=== PATIENT | female | born 1980 | race Caucasian/White ===

== ENCOUNTER → 2017-02-18 | Outpatient (CLI) | payer OTHER ==
[~2017-02-18] MED LIST: 'PARAFON FORTE500 M1 PO; ASPIRIN ADULT L81 M2 PO; BACTRIM DS 8001 TA1 PO; CLINDAMYCIN HC300 MG PO; CLINDAMYCIN150 MG PO; EFFEXOR50 MG PO; ESTRAC1; ESTRACE2 MG PO; FLEXERIL5 MG PO; HYDROCODONE BIT1 T11 PO; K-TAB20 MEQ PO; KLONOPIN0.5 MG; KLONOPIN0.5 MG PO; LOPRESSOR25 MG PO; MOTRIN800 MG PO; NATURE'S BLEND F1 MG PO; PREDNISONE10 MG PO; PRILOSEC20 M1 PO; TRAMADOL HCL50 MG PO; TRAMADOL50 MG PO; VIBRAMYCIN100 MG PO; VICODIN 500 MG-1 TAB PO; VICODIN ES 7501 TAB PO; ZOCOR20 MG PO; ZYRTEC10 M3 PO
== END | disposition home or self-care (01) ==
LOC: RAD 07:52
DX: M54.40 Lumbago with sciatica, unspecified side (principal); R20.0 Anesthesia of skin

== ENCOUNTER → 2018-06-29 | Outpatient (CLI) | payer OTHER | END | disposition home or self-care (01) | LOC: MAMMO 06-10 09:30 → US 06-10 10:00 → MAMMO 12:39 | DX: N63.20 Unspecified lump in the left breast, unspecified quadrant (principal); N63.10 Unspecified lump in the right breast, unspecified quadrant ==

== ENCOUNTER 2020-03-12 10:52 | Emergency (ER) | payer OTHER ==
[~2020-03-12] VITALS: Ht 149.8 cm; Wt 54.4 kg
[2020-03-12 10:58] VITALS: BP 117/55
[2020-03-12] MEDS ORDERED: Motrin,Rufen800 MG PO (13:24)
[2020-03-12] MEDS ORDERED: NORCO 5-325 TA1 EACH PO ×2 (13:24→13:31)
== END 2020-03-12 13:29 | disposition home or self-care (01) ==
LOC: ED 10:52
DX: S20.212A Contusion of left front wall of thorax, initial encounter (principal); S20.211A Contusion of right front wall of thorax, initial encounter; Z88.0 Allergy status to penicillin; Z88.2 Allergy status to sulfonamides; Z88.8 Allergy status to other drugs, medicaments and biological substances; Z79.899 Other long term (current) drug therapy; Z79.82 Long term (current) use of aspirin; Z90.710 Acquired absence of both cervix and uterus; X50.1XXA Overexertion from prolonged static or awkward postures, initial encounter; Y93.89 Activity, other specified; Y92.89 Other specified places as the place of occurrence of the external cause; Y99.8 Other external cause status

== ENCOUNTER 2020-05-29 16:05 | Emergency (ER) | payer OTHER ==
[~2020-05-29] VITALS: Ht 152.4 cm; Wt 56.7 kg
[~2020-05-29 16:05] MED LIST changes: +Motrin,Rufen800 MG PO; +NORCO 5-325 TA1 EACH PO
[2020-05-29 16:18] VITALS: BP 123/72
[2020-05-29 16:51] LABS: BILIRUBIN NEGATIVE (NEGATIVE); BLOOD NEGATIVE (NEGATIVE); CLARITY SL CLOUDY (CLEAR); COLOR YELLOW (YELLOW); GLUCOSE NEGATIVE (NEGATIVE); KETONE NEGATIVE (NEGATIVE); LEUKO ESTERASE NEGATIVE (NEGATIVE); NITRITE NEGATIVE (NEGATIVE); PH 6.5 (5.0-9.0); SPECIFIC GRAVITY 1.005 (1.005-1.030); UROBILINOGEN 0.2 E.U./dl (0.2-1.0)
[2020-05-29 16:53] LABS: BACTERIA 1+
[2020-05-29 17:11] LABS: BASO # 0.1 10*3/uL (0.0-0.1); BASO % 0.4 % (0.0-1.0); EOS # 0.3 10*3/uL (0.0-0.4); EOS % 2.2 % (1.0-4.0); HEMATOCRIT 42.8 % (37.0-47.0); LYMPH % 22.8 % (27.0-41.0); MEAN CORPUSCULAR HGB 30.8 pg (27.0-31.0); MEAN CORPUSCULAR HGB CONC 33.4 g/dl (33.0-37.0); MEAN PLATELET VOLUME 9.5 fl (9.6-12.3); MONO # 0.9 10*3/uL (0.1-1.0); MONO % 6.8 % (3.0-9.0); NEUT % 67.5 % (47.0-73.0); PLATELET COUNT AUTOMATED 330 10*3/uL (130-400); RED BLOOD COUNT 4.65 10*6/uL (4.10-5.10); RED CELL DISTRI WIDTH 13.8 % (0-14.5); WHITE BLOOD COUNT 13.3 10*3/uL (4.8-10.8)
[2020-05-29 17:26] LABS: ALBUMIN 3.4 gm/dl (3.1-4.5); ALKALINE PHOSPHATASE 103 U/L (45-117); BUN 10 mg/dl (7-24); CHLORIDE 107 mmol/L (98-107); CREATININE 0.75 mg/dL (0.55-1.02); LIPASE 250 U/L (73-393); POTASSIUM 3.5 mmol/L (3.5-5.1); SGOT/AST 13 IU/L (3-35); SGPT/ALT 28 U/L (12-78); SODIUM 139 mmol/L (136-145); TOTAL PROTEIN 6.7 gm/dL (6.4-8.2)
[2020-05-29] MEDS ORDERED: ROBAXIN-750750 MG PO (18:44)
== END 2020-05-29 18:48 | disposition home or self-care (01) ==
LOC: ED 16:05
PROVIDERS: Emergency Medicine; Nurse Practitioner Family
DX: M25.552 Pain in left hip (principal); R10.9 Unspecified abdominal pain; R39.11 Hesitancy of micturition; F17.200 Nicotine dependence, unspecified, uncomplicated; Z88.0 Allergy status to penicillin; Z88.2 Allergy status to sulfonamides; Z88.6 Allergy status to analgesic agent; Z79.899 Other long term (current) drug therapy

== ENCOUNTER → 2020-07-25 | Outpatient (CLI) | payer OTHER ==
[~2020-07-25] MED LIST changes: +ROBAXIN-750750 MG PO
== END | disposition home or self-care (01) ==
LOC: COVID19 01:00
PROVIDERS: ATTEND Family Medicine
DX: Z20.828 Contact with and (suspected) exposure to other viral communicable diseases (principal)

== ENCOUNTER → 2021-07-26 | Outpatient (CLI) | payer OTHER ==
[2021-07-26 09:18] LABS: HEMATOCRIT 38.7 % (37.0-47.0); MEAN CELL VOLUME 91.1 fl (81.0-99.0); MEAN CORPUSCULAR HGB 30.6 pg (27.0-31.0); MEAN CORPUSCULAR HGB CONC 33.6 g/dl (33.0-37.0); MEAN PLATELET VOLUME 9.4 fl (9.6-12.3); RED BLOOD COUNT 4.25 10*6/uL (4.10-5.10); RED CELL DISTRI WIDTH 13.2 % (0-14.5); WHITE BLOOD COUNT 8.3 10*3/uL (4.8-10.8)
[2021-07-26 09:47] LABS: ALBUMIN 2.9 gm/dl (3.1-4.5); ALKALINE PHOSPHATASE 128 U/L (45-117); BUN 7 mg/dl (7-24); CHLORIDE 107 mmol/L (98-107); CHOLESTEROL 211 mg/dL (<200); CREATININE 0.74 mg/dL (0.55-1.02); LDL CHOLESTEROL 109 mg/dL (9-159); POTASSIUM 3.7 mmol/L (3.5-5.1); SGOT/AST 20 IU/L (3-35); SGPT/ALT 28 U/L (12-78); SODIUM 140 mmol/L (136-145); TRIGLYCERIDES 143 mg/dl (<150)
== END | disposition home or self-care (01) ==
LOC: LAB 08:56
PROVIDERS: ATTEND Family Medicine
DX: E55.9 Vitamin D deficiency, unspecified (principal); E78.00 Pure hypercholesterolemia, unspecified; E74.00 Glycogen storage disease, unspecified; F41.1 Generalized anxiety disorder; G62.9 Polyneuropathy, unspecified

== ENCOUNTER → 2021-09-04 | Outpatient (CLI) | payer OTHER | END | disposition home or self-care (01) | LOC: MAMMO 08-07 14:00 | PROVIDERS: ATTEND Family Medicine | DX: Z12.31 Encounter for screening mammogram for malignant neoplasm of breast (principal) ==

== ENCOUNTER → 2023-05-01 | Outpatient (CLI) | payer OTHER ==
[2023-05-01 10:51] LABS: HEMATOCRIT 41.2 % (37.0-47.0); MEAN CELL VOLUME 90.5 fl (81.0-99.0); MEAN CORPUSCULAR HGB 30.1 pg (27.0-31.0); MEAN CORPUSCULAR HGB CONC 33.3 g/dl (33.0-37.0); MEAN PLATELET VOLUME 9.8 fl (9.6-12.3); RED BLOOD COUNT 4.55 10*6/uL (4.10-5.10); RED CELL DISTRI WIDTH 13.7 % (0-14.5); WHITE BLOOD COUNT 8.7 10*3/uL (4.8-10.8)
[2023-05-01 11:18] LABS: ALKALINE PHOSPHATASE 152 U/L (46-116); BUN 7 mg/dl (9-23); CHLORIDE 107 mmol/L (98-107); CHOLESTEROL 237 mg/dL (<200); LDL CHOLESTEROL 145 mg/dL (9-159); POTASSIUM 3.9 mmol/L (3.4-5.1); SGPT/ALT 19 U/L (10-49); TOTAL PROTEIN 6.4 gm/dL (6.0-8.0); TRIGLYCERIDES 155 mg/dl (<150)
== END | disposition home or self-care (01) ==
LOC: LAB 09:58
PROVIDERS: ATTEND Family Medicine
DX: Z00.00 Encounter for general adult medical examination without abnormal findings (principal); E74.00 Glycogen storage disease, unspecified; F41.1 Generalized anxiety disorder; K21.9 Gastro-esophageal reflux disease without esophagitis; G62.9 Polyneuropathy, unspecified

== ENCOUNTER → 2023-06-09 | Outpatient (CLI) | payer OTHER | END | disposition home or self-care (01) | LOC: US 05-20 00:34 | PROVIDERS: ATTEND Family Medicine | DX: Z12.31 Encounter for screening mammogram for malignant neoplasm of breast (principal); E27.8 Other specified disorders of adrenal gland ==

== ENCOUNTER → 2024-01-29 | Outpatient (CLI) | payer OTHER ==
[2024-01-29 08:58] LABS: HEMATOCRIT 45.8 % (37.0-47.0); MEAN CELL VOLUME 91.2 fl (81.0-99.0); MEAN CORPUSCULAR HGB 29.5 pg (27.0-31.0); MEAN CORPUSCULAR HGB CONC 32.3 g/dl (33.0-37.0); MEAN PLATELET VOLUME 9.3 fl (9.6-12.3); RED BLOOD COUNT 5.02 10*6/uL (4.10-5.10); RED CELL DISTRI WIDTH 13.3 % (0-14.5); WHITE BLOOD COUNT 9.7 10*3/uL (4.8-10.8)
[2024-01-29 09:28] LABS: ALKALINE PHOSPHATASE 184 U/L (46-116); BUN 7 mg/dl (9-23); CHLORIDE 106 mmol/L (98-107); CHOLESTEROL 251 mg/dL (<200); FREE T4 1.34 ng/dl (0.89-1.76); LDL CHOLESTEROL 178 mg/dL (9-159); POTASSIUM 4.1 mmol/L (3.4-5.1); SGPT/ALT 16 U/L (5-49); TOTAL PROTEIN 7.3 gm/dL (6.0-8.0); TRIGLYCERIDES 72 mg/dl (<150)
[2024-01-29 09:51] LABS: VITAMIN D, 25-HYDROXY 8.5 ng/mL (30-100)
[2024-02-02 15:07] LABS: TESTOSTERONE FREE, (DIRECT) 1.2 pg/mL (0.0-4.2)
== END | disposition home or self-care (01) ==
LOC: LAB 08:31
PROVIDERS: ATTEND Family Medicine
DX: E55.9 Vitamin D deficiency, unspecified (principal); R53.83 Other fatigue; Z00.00 Encounter for general adult medical examination without abnormal findings; N95.1 Menopausal and female climacteric states; L68.0 Hirsutism; E66.9 Obesity, unspecified

== ENCOUNTER → 2025-03-02 | Outpatient (CLI) | payer OTHER | END | disposition home or self-care (01) | LOC: LAB 08:02 | PROVIDERS: ATTEND Family Medicine | DX: M25.50 Pain in unspecified joint (principal); R20.0 Anesthesia of skin; R25.2 Cramp and spasm; M19.90 Unspecified osteoarthritis, unspecified site; M79.10 Myalgia, unspecified site ==

== ENCOUNTER → 2025-06-15 | Outpatient (CLI) | payer OTHER | END | disposition home or self-care (01) | LOC: RAD 08:09 | PROVIDERS: ATTEND Family Medicine | DX: R07.89 Other chest pain (principal) ==

== ENCOUNTER → 2025-09-08 | Outpatient (CLI) | payer OTHER ==
[2025-09-08 09:08] LABS: MEAN CELL VOLUME 94.2 fl (81.0-99.0); MEAN CORPUSCULAR HGB 31.0 pg (27.0-31.0); MEAN PLATELET VOLUME 9.7 fl (9.6-12.3); NUCLEATED RED BLOOD CELL 0.0 % (0.0-0.0); NUCLEATED RED BLOOD CELL 0.0 10*3/uL (0.0-0.0); PLATELET COUNT AUTOMATED 357.0 10*3/uL (130-400); RED CELL DISTRI WIDTH 12.2 % (0-14.5)
[2025-09-08 09:35] LABS: BUN 7 mg/dl (9-23); FREE T4 1.44 ng/dl (0.89-1.76); LDL CHOLESTEROL 103 mg/dL (9-159); SGPT/ALT 19 U/L (5-49); VITAMIN D, 25-HYDROXY 48.6 ng/mL (30-100)
[2025-09-12 10:07] LABS: TESTOS, FREE 0.3 pg/mL (0.0-4.2)
== END | disposition home or self-care (01) ==
LOC: LAB 08:47
PROVIDERS: ATTEND Family Medicine
DX: E74.00 Glycogen storage disease, unspecified (principal); K21.9 Gastro-esophageal reflux disease without esophagitis; F41.1 Generalized anxiety disorder; L65.9 Nonscarring hair loss, unspecified; M25.59 Pain in other specified joint; G62.9 Polyneuropathy, unspecified; M79.10 Myalgia, unspecified site; M25.50 Pain in unspecified joint; R10.9 Unspecified abdominal pain